=== PATIENT | female | born 1985 | race Caucasian/White ===

== ENCOUNTER 2020-10-31 13:22 | Emergency (ER) | payer SELFPAY ==
[~2020-10-31] VITALS: Ht 172.7 cm; Wt 91.0 kg
--- NOTE | 2020-10-31 13:52 | RAD ---
XR KNEE _3 VIEWS_LT History: Knee pain Comparison: None. Technique: 3 views of the left knee. Findings: There is no evidence for fracture. Alignment is normal. No destructive osseous lesions are seen. Joint spaces are preserved. No significant effusion. Soft tissues are normal. Impression: 1. No acute osseous abnormality of the left knee. Electronically signed by: Riley Lucio MD (10/31/2020 1:50 PM) [facility]
--- NOTE | 2020-10-31 13:56 | PHYS DOC ---
Past History Past Medical History: No Pertinent History Past Surgical History: , Hysterectomy Alcohol Use: None General Adult EDM: Chief Complaint: KNEE INJURY HPI: HPI: 35-year-old female who denies any significant past medical history presents the ED with complaints of sudden onset medial and lateral left knee pain that occurred when patient was walking just prior to arrival. Patient states she got her foot stuck in a hole, twisted her body to the right (knee inversion) and sudden onset "popping" sensation in the knee. Did not fall, hit her head, no blunt injury. Unable to tolerate weight bearing. States no prior injury to the left knee. No history for quinolones in the past 6 months. States she did not see any joint dislocation or posterior movement of her leg. Recently moved here 3 months ago from [place], is and drove her to the ED. No history of hypertension. No associated chest pain, difficulties breathing, neurologic deficits or confusion. Has not taken anything for the pain. Past surgical history of hysterectomy. Review of Systems: Review of Systems: Constitutional: Denies fever or chills Eyes: Denies change in visual acuity HENT: Denies nasal congestion or sore throat Respiratory: Denies cough or shortness of breath Cardiovascular: Denies chest pain or edema GI: Denies abdominal pain, nausea, vomiting, bloody stools or diarrhea : Denies dysuria or vaginal bleeding Musculoskeletal: Denies back pain or joint deformity Integument: Denies rash or diaphoresis Neurologic: Denies headache, neck pain, focal weakness or sensory changes Endocrine: Denies polyuria or polydipsia Lymphatic: Denies swollen glands Psychiatric: Denies depression or anxiety Allergies: Allergies: Allergies Coded Allergies Type Severity Reaction Last Updated Verified No Known Drug Allergies 10/31/20 No Physical Exam: PE: Constitutional: Well developed, well nourished, uncomfortable and in active pain HENT: Normocephalic, atraumatic, Eyes: EOMI, conjunctiva normal, no discharge. Neck: Normal range of motion, supple, Cardiovascular: S1/2 present, regular rhythm Lungs & Thorax: Speaking in full sentences, bilateral equal chest rise, no tachypnea or increased work of breathing Abdomen: soft, no tenderness, Skin: Warm, dry, no erythema, no rash. [] Back: No midline tenderness, no CVA tenderness. [] Extremities: left knee lateral and suprapatellar swelling, ttp over medial and lateral tibia/knee joint, prefers knee flexion, pain illicited w/knee flexion, no ligamentous instability with Lachmans/reverse Lachmans/varus/valgus stress testing, to focal ttp over left fibular head/left hip and left ankle at malleolis/ankle joint, Left DP/PT intact, cap refill < 1 second, no anterior/posterior knee joint pain Neurologic: Alert and oriented X 3, normal motor function, normal sensory function, no focal deficits noted. [] Psychologic: Affect normal, judgement normal, mood normal. [] Current Patient Data: Vital Signs: Vital Signs Date Time Temp Pulse Resp B/P (MAP) Pulse Ox O2 Delivery O2 Flow Rate FiO2 10/31/20 13:30 97.4 121 18 188/122 (144) 98 EKG: EKG: [] Radiology/Procedures: Radiology/Procedures: IMAGING REPORT Signed PATIENT: AMISHA ESPINOZA ACCOUNT: [id number] : 1985 LOCATION: ER AGE: 35 SEX: F EXAM STATUS: REG ER ORD. PHYSICIAN: MEGAN MILIAN DO REASON: knee pain PROCEDURE: KNEE LEFT 3V XR KNEE _3 VIEWS_LT History: Knee pain Comparison: None. Technique: 3 views of the left knee. Findings: There is no evidence for fracture. Alignment is normal. No destructive osseous lesions are seen. Joint spaces are preserved. No significant effusion. Soft tissues are normal. Impression: 1. No acute osseous abnormality of the left knee. Electronically signed by: Riley Templeton MD (10/31/2020 1:50 PM) [facility] DICTATED AND SIGNED BY: RILEY TEMPLETON MD DATE: 10/31/20 1349 CC: PCP,NO; MEGAN MILIAN DO ~MTH0 0 Heart Score: C/O Chest Pain: No Risk Factors: Risk Factors: DM, Current or recent (<one month) smoker, HTN, HLP, family history of CAD, obesity. Risk Scores: Score 0 - 3: 2.5% MACE over next 6 weeks - Discharge Home Score 4 - 6: 20.3% MACE over next 6 weeks - Admit for Clinical Observation Score 7 - 10: 72.7% MACE over next 6 weeks - Early Invasive Strategies Course & Med Decision Making: Course & Med Decision Making Pertinent Labs and Imaging studies reviewed. (See chart for details) Concern for left knee sprain, suspect medial/lateral ligamentous injury. Pt does not tolerate knee extension. Injury w/no reported dislocation of the knee joint or blunt injury, no joint laxity with ligamentous testing to suggest popliteal artery injury. Neurovascular exam intact. Recommended knee brace (does not tolerate knee immobilizer) - starr wrap and medical supply story recommended to pursue supportive knee device. Crutches and RICE instructions given. Will discharge home with strict ED return precautions were given for (compartment syndrome vs arterial injury) severe uncontrollable pain, neuro deficits, skin color changes, joint instability or repeat injury. Patient also with unco ntrolled, asymptomatic hypertension in the setting of pain. Repeat systolic was 142. Encouraged urgent outpatient follow-up with PMD and orthopedic surgery evaluation within the next 7 days to consider nonemergent mri for ligamentous injury. Life-threatening processes were considered but are low suspicion at this time, given history, physical exam and ED workup. Pt was educated on all prescription medications and adverse effects. All patient's questions were answered and pt was stable at time of discharge. Life/limb-threatening differential includes but is not limited to, trauma (fracture, dislocation, laceration, compartment syndrome, tendon or ligament injury), neurovascular injury or deficitcva/tia, infection (osteomyelitis, abscess, cellulitis, septic arthritis, necrotizing fasciitis), deep vein thrombosis, renal/cardiac/liver disease, medication adverse effect, lymphedema/a nasarca, vascular insufficiency or malignancy, I spoken with the patient and her caregivers. I explained the patient's condit ion, diagnoses and treatment plan based on the information available to me at this time. I have answered the patient and her caregiver's questions and addressed any concerns. The patient and her caregivers have a good understanding of patient's diagnosis, condition and treatment plan as can be expected at this point. Vital signs have been stable. Patient's condition is stable and appropriate for discharge from the emergency department. Patient will pursue further outpatient evaluation with primary care physician or other designated or consulting physician as outlined in the discharge instructions. The patient and/or caregivers are agreeable to this plan of care and follow-up instructions have been explained in detail. The patient and/or caregivers have received these instructions in written form and have expressed an understanding of the discharge instructions. The patient and/or caregivers are aware that any significant change of condition or worsening of symptoms should prompt immediate return to this or the closest emergency department or call to [id number] Disclaimer: Nitin Disclaimer: This electronic medical record was generated, in whole or in part, using a voice recognition dictation system. Departure Departure: Impression: Primary Impression: Left knee sprain Additional Impression: Uncontrolled hypertension Disposition: 01 DC HOME SELF CARE/HOMELESS Condition: STABLE Referrals: PCP,NO (PCP) FOLLOW UP WITH FAMILY MEDICINE: Complete [facility], [facility] [address] [place] [address], [facility] Instructions: Crutch Use, Knee Pain, Knee Sprain, RICE - Routine Care f or Injuries Additional Instructions: FOLLOW UP WITH ORTHOPEDICS: within 1 week [facility] [address] [facility], [address] [place] [address] EMERGENCY DEPARTMENT GENERAL DISCHARGE INSTRUCTIONS Thank you for coming to [facility] (ED) today and trusting us with you care. We trust that you had a positivie experience in our Emergency Department. If you wish to speak to the department management, you may call the director at [phone]. YOUR FOLLOW UP INSTRUCTIONS ARE FOLLOWS: 1. Do you have a private Doctor? If you do not have a private doctor, please ask for a resource list of physicians or clinics that may be able to assist you with follow up care. 2. The Emergency Physician has interpreted your x-rays. The X-Ray specialist will also review them. If there is a change in the findings, you will be notified in 48 hours when at all possible. 3. A lab test or culture has been done, your results will be reviewed and you will be notified if you need a change in treatment. ADDITIONAL INSTRUCTIONS AND INFORMATION: 1. Your care today has been supervised by a physician who is specially trained in emergency care. Many problems require more than one evaluation for a complete diagnosis and treatment. We recommend that you schedule your follow up appointment as recommended to ensure complete treatment of you illness or injury. If you are unable to obtain follow up care and continue to have a problem, or if your condition worsens, we recommend that you return to the ED. 2. We are not able to safely determine your condition over the phone nor are we able to give sound medical advice over the phone. For these safety reasons, if you call for medical advice we will ask you to come to the ED for further evaluation. 3. If you have any questions regarding these discharge instructions please call the ED at [phone]. SAFETY INFORMATION: In the interest of safety, wellness, and injury prevention; we encourage you to wear your sealbelt, if you smoke; quite smoking, and we encourage family to use a protective helmet for bicycling and other sporting events that present an increased risk for head injury. IF YOUR SYMPTOMS WORSEN OR NEW SYMPTOMS DEVELOP, OR YOU HAVE CONCERNS ABOUT YOUR CONDITION; OR IF YOUR CONDITION WORSENS WHILE YOU ARE WAITING FOR YOUR FOLLOW UP APPOINTMENT; EITHER CONTACT YOUR PRIMARY CARE DOCTOR, THE PHYSICIAN WHOSE NAME AND NUMBER YOU WERE GIVEN, OR RETURN TO THE ED IMMEDIATELY. Scripts Ibuprofen (IBUPROFEN) 600 Mg Tablet 600 MG PO Q6HRS for headache, #20 TAB Prov: MEGAN MILIAN DO 10/31/20 Hydrocodone Bit/Acetaminophen (HYDROCODONE-APAP 5-325 ) 1 Each Tablet 1 TAB PO PRN Q6HRS PRN for PAIN for 4 Days, #16 TAB 0 Refills Causes constipation. Do not drink alcohol, drive or operate heavy machinery with this medication Prov: MEGAN MILIAN DO 10/31/20 MEGAN MILIAN DO Oct 31, 2020 13:56
[2020-10-31] MEDS ORDERED: HYDR-2155 PO (14:13)
[2020-10-31] MEDS ORDERED: IBUP600T16 PO (14:13)
[2020-10-31] MEDS ORDERED: HYDROcodone/APAP 10/325 1 TAB TABLET ONE (14:15)
[2020-10-31] MEDS ORDERED: HYDROcodone/APAP 10/325 1 TAB TABLET PO ONE (14:15)
[2020-10-31 14:18] VITALS: BP 141/94
== END 2020-10-31 14:30 | disposition home or self-care (01) ==
LOC: ER 13:22
DX: S83.8X2A Sprain of other specified parts of left knee, initial encounter (principal); M25.562 Pain in left knee; R60.0 Localized edema; Z90.710 Acquired absence of both cervix and uterus; Z98.890 Other specified postprocedural states; X58.XXXA Exposure to other specified factors, initial encounter; Y93.89 Activity, other specified; Y92.89 Other specified places as the place of occurrence of the external cause; Y99.8 Other external cause status
CPT/HCPCS: 73562; 99283